=== PATIENT | male | born 1950 | race Caucasian/White ===

== ENCOUNTER → 2017-04-07 | Outpatient (CLI) | payer OTHER, MEDICARE ==
[~2017-04-07] MED LIST: CLEOCIN HCL150 MG PO; CRESTOR10 MG PO; IBUPROFEN 800800 M1 PO; LEVOTHYROXINE0.05 MG PO; LISINOPRIL20 MG PO; MIRALAX17 GM PO; NORVASC10 MG PO; PRILOSEC PO; TRAMADOL 50 MG50 MG PO
[2017-04-07 11:23] LABS: ABSOLUTE EOSINOPHILS 0.1 thou/uL (0.0-0.7); ABSOLUTE MONOCYTES 0.7 thou/uL (0.0-1.2); ABSOLUTE NEUTROPHILS 6.8 thou/uL (1.6-8.1); BASOPHILS 0.6 %; EOSINOPHILS 1.4 %; HEMOGLOBIN 15.3 gm/dL (14.0-18.0); LYMPHOCYTES 11.4 %; MCH 26.7 pg (26.0-34.0); MCHC 33.1 g/dL (28.0-37.0); MCV 80.5 fL (80.0-100.0); MONOCYTES 8.4 %; MPV 7.7 fl. (7.2-11.1); NUCLEATED RBCS 0 /100WBC; PLATELET COUNT* 270 thou/uL (150-400); POLYS 78.2 %; RBC 5.72 mil/uL (4.50-6.00); RDW-CV 15.4 % (10.5-14.5); WBC 8.7 thou/uL (4.0-11.0)
[2017-04-07 11:49] LABS: ALBUMIN 3.3 g/dL (3.4-5.0); CREATININE 1.2 mg/dL (0.6-1.3); TOTAL BILIRUBIN 0.3 mg/dL (<0.1-1.0); TOTAL PROTEIN 7.5 g/dL (6.4-8.2)
[2017-04-07 11:53] LABS: POTASSIUM 2.5 mmol/L (3.5-5.1)
== END ==
LOC: M.LAB 10:53
PROVIDERS: Radiology Radiation Oncology
DX: Z85.048 Personal history of other malignant neoplasm of rectum, rectosigmoid junction, and anus (principal)

== ENCOUNTER → 2017-04-09 | Outpatient (CLI) | payer OTHER ==
[2017-04-09 10:01] LABS: CREATININE 1.2 mg/dL (0.6-1.3)
== END ==
LOC: M.LAB 09:41
PROVIDERS: Radiology Radiation Oncology
DX: E87.6 Hypokalemia (principal)

== ENCOUNTER → 2017-04-09 | Outpatient (CLI) | payer OTHER ==
--- NOTE | 2017-04-19 11:23 | ONC ---
[place] [address] RADIATION ONCOLOGY NOTE Name: ALYMK Devan Room: [facility]#: [id number] Admission: 04/09/17 Attend Phys: Jacob Larkin MD Discharge: Date of : 52 Report #: [id number] THIS REPORT FOR: //name// CC: Dr. Jose Kendall MD DATE OF SERVICE: 04/09/2017 REFERRING PHYSICIANS: Include Dr. Jose Montoya; Kristi Perez MD; Logan Bennett MD; Hernando Kendall MD [facility] phone is [phone]. PRIMARY SITE AND HISTOPATHOLOGY: The patient received chemoradiotherapy preoperatively for a clinical T3 NX M0 rectal cancer. The patient underwent resection of the rectal cancer on 09/04/2013. The patient's radiation therapy was completed on 06/29/2013. The patient underwent a low anterior resection on 09/04/2013. He had a well-differentiated adenocarcinoma of the rectum resected. INTERVAL NOTE: The patient has lost weight. He attributes it to "losing water weight" and that he lost it since he has been taking lisinopril/hydrochlorothiazide. He has incontinence and wears disposable undergarments. He indicated that Dr. Perez had offered a colostomy bag for the patient and the patient declined to have a colostomy bag. He says he has about 3 loose bowel movements a day, and he takes Imodium AD as needed. In the past, he has taken Lomotil, but now he is mainly taking [id number] Imodium AD. MEDICATIONS: Amlodipine, levothyroxine, lisinopril/hydrochlorothiazide, rosuvastatin, omeprazole. SOCIAL HISTORY: The patient continues to smoke cigarettes. He smokes about 1 cigarette a day. He smoked since about 1959. REVIEW OF SYSTEMS: GASTROINTESTINAL: He does have bowel incontinence. He does continue to have weight loss. He does have loose stools. GENITOURINARY: He empties his bladder well. PHYSICAL EXAMINATION: VITAL SIGNS: The patient weighed 188.2 pounds on 04/09/2017. He was 204.6 pounds on 01/06/2017. On 04/09/2017, blood pressure was 130/78, pulse 68. LYMPH NODES: The patient had no palpable cervical, supraclavicular or inguinal lymphadenopathy. HEART: [place] [address] RADIATION ONCOLOGY NOTE Name: MK LU Room: [facility]#: [id number] Admission: 04/09/17 Attend Phys: Jacob Larkin MD Discharge: Date of : 52 Report #: [id number] rhythm without murmur. LUNGS: were clear to auscultation. ABDOMEN: Appears slightly distended. Positive bowel sounds. RECTAL: There were no palpable masses in the rectum.He is guaiac negative using [employer] Hemoccult cards from lot [id number], that in 06/2019, using [employer] Hemoccult developer from lot [id number] that expires in 01/2020. LABORATORY DATA: From 04/07/2017, white blood count was 8.7, hemoglobin 15.3, platelets 270,000. Sodium 141, potassium 2.5, BUN 13, creatinine 1.2 and then he was given supplemental potassium and his potassium went up to 3.0 on 04/09/2017. His CEA level on 04/07/2017 was 3.3. ASSESSMENT AND PLAN: 1. History of rectal cancer- There is no clear evidence of rectal cancer at this time. The patient had a colonoscopy with biopsies on 11/30/2016, which was negative for carcinoma. So, a repeat chest, abdomen and pelvic CT will be ordered in the next 2-4 weeks as well as a complete blood count, complete metabolic panel. The patient will be asked to schedule a follow up appointment to see me afterwards. He indicated that he is also scheduled to see Dr. Kendall for colonoscopy in May and his colorectal surgeon, Dr. Perez, after that. 2. Hypokalemia-It appears to be correcting with supplemental potassium, part of the hypokalemia may be from his use of hydrochlorothiazide. He will be referred to his primary care physician, Dr. Montoya, to manage his hypokalemia. 3. Cigarette smoking-the patient was encouraged to quit smoking. 4. Hyperlipidemia- The patient takes rosuvastatin and that is managed by his referring physicians. 5. Hypothyroidism-the patient takes levothyroxine and that is managed by his referring physicians. 6. Hypertension. The patient takes lisinopril/hydrochlorothiazide and that is managed by his referring physicians. Thank you for allowing me to participate in the care of this patient. <ELECTRONICALLY SIGNED> By: Jacob Larkin MD 04/19/17 1123 1229 [id number] Larkin MD /nt
== END ==
LOC: M.RTH 04-07 10:30
DX: Z08 Encounter for follow-up examination after completed treatment for malignant neoplasm (principal); E87.6 Hypokalemia; E78.5 Hyperlipidemia, unspecified; E03.9 Hypothyroidism, unspecified; I10 Essential (primary) hypertension; F17.200 Nicotine dependence, unspecified, uncomplicated; Z85.048 Personal history of other malignant neoplasm of rectum, rectosigmoid junction, and anus

== ENCOUNTER → 2017-04-21 | Outpatient (CLI) | payer OTHER ==
[2017-04-21 10:30] LABS: ABSOLUTE EOSINOPHILS 0.1 thou/uL (0.0-0.7); ABSOLUTE MONOCYTES 0.5 thou/uL (0.0-1.2); ABSOLUTE NEUTROPHILS 5.3 thou/uL (1.6-8.1); BASOPHILS 0.7 %; EOSINOPHILS 1.6 %; HEMATOCRIT 44.3 % (42.0-52.0); HEMOGLOBIN 14.7 gm/dL (14.0-18.0); LYMPHOCYTES 13.7 %; MCH 26.9 pg (26.0-34.0); MCHC 33.2 g/dL (28.0-37.0); MONOCYTES 7.9 %; MPV 7.3 fl. (7.2-11.1); NUCLEATED RBCS 0 /100WBC; PLATELET COUNT* 285 thou/uL (150-400); POLYS 76.1 %; RBC 5.47 mil/uL (4.50-6.00); RDW-CV 15.3 % (10.5-14.5); WBC 6.9 thou/uL (4.0-11.0)
[2017-04-21 10:53] LABS: ALBUMIN 3.3 g/dL (3.4-5.0); CALCIUM 9.3 mg/dL (8.5-10.1); CREATININE 1.3 mg/dL (0.6-1.3); POTASSIUM 4.1 mmol/L (3.5-5.1); TOTAL BILIRUBIN 0.6 mg/dL (<0.1-1.0); TOTAL PROTEIN 6.7 g/dL (6.4-8.2)
== END ==
LOC: M.LAB 10:08 → M.CT 11:30
PROVIDERS: Radiology Radiation Oncology
DX: C18.9 Malignant neoplasm of colon, unspecified (principal); E87.1 Hypo-osmolality and hyponatremia; J43.8 Other emphysema

== ENCOUNTER 2017-04-23 14:21 | Inpatient (IN) | payer OTHER ==
[~2017-04-23] VITALS: Ht 177.8 cm; Wt 88.0 kg
--- NOTE | ~2017-04-23 | PROC ---
[address] [address] PROCEDURE REPORT Name: MK LU Room: [address] IN .R.#: [id number] Admission: 04/23/17 Attend Phys: Henry Owen MD Discharge: 04/24/17 Date of : 52 Report #: [id number] THIS REPORT FOR: //name// For additional GI procedure report details, please see the Provation report in Perceptive 7 content. By: [id number] Records Staff ALBERTA /ALFRED
--- NOTE | ~2017-04-23 | PROC ---
[address] [address] PROCEDURE REPORT Name: MK LU Room: [address] IN .R.#: [id number] Admission: 04/23/17 Attend Phys: Henry Owen MD Discharge: 04/24/17 Date of : 52 Report #: [id number] THIS REPORT FOR: //name// For additional GI report details, please see the Provation report in Perceptive 7 content. By: 1316Medical Records Staff ALBERTA /ALFRED
[~2017-04-23 14:21] MED LIST changes: -MIRALAX17 GM PO
[2017-04-23 14:31] VITALS: BP 134/80
[2017-04-23 14:53] LABS: URINE BILIRUBIN NEGATIVE (Negative); URINE BLOOD NEGATIVE (Negative); URINE CLARITY CLEAR; URINE COLOR YELLOW; URINE GLUCOSE-RANDOM NEGATIVE (Negative); URINE KETONES TRACE (Negative); URINE LEUKOCYTES-REFLEX NEGATIVE (Negative); URINE NITRITE-REFLEX NEGATIVE (Negative); URINE PROTEIN NEGATIVE (Negative); URINE UROBILINOGEN 0.2 E.U./dl (0.2-1.0)
[2017-04-23 15:02] LABS: ABSOLUTE BASOPHILS 0.1 thou/uL (0.0-0.2); ABSOLUTE EOSINOPHILS 0.1 thou/uL (0.0-0.7); ABSOLUTE LYMPHOCYTES 1.3 thou/uL (0.8-5.3); ABSOLUTE MONOCYTES 0.6 thou/uL (0.0-1.2); ABSOLUTE NEUTROPHILS 5.6 thou/uL (1.6-8.1); BASOPHILS 0.7 %; EOSINOPHILS 1.2 %; HEMATOCRIT 42.4 % (42.0-52.0); HEMOGLOBIN 14.1 gm/dL (14.0-18.0); LYMPHOCYTES 16.6 %; MCH 26.6 pg (26.0-34.0); MCHC 33.2 g/dL (28.0-37.0); MCV 80.2 fL (80.0-100.0); MONOCYTES 7.6 %; MPV 7.7 fl. (7.2-11.1); NUCLEATED RBCS 0 /100WBC; PLATELET COUNT* 272 thou/uL (150-400); POLYS 73.9 %; RBC 5.28 mil/uL (4.50-6.00); RDW-CV 15.4 % (10.5-14.5); WBC 7.5 thou/uL (4.0-11.0)
[2017-04-23 15:10] LABS: ANION GAP 8 mmol/L (7-16); BUN 13 mg/dL (7-18); CALCIUM 9.2 mg/dL (8.5-10.1); CHLORIDE 103 mmol/L (98-107); CO2 31 mmol/L (21-32); CREATININE 1.3 mg/dL (0.6-1.3); GLUCOSE 95 mg/dL (70-99); POTASSIUM 3.5 mmol/L (3.5-5.1); SODIUM 142 mmol/L (136-145)
[2017-04-23 15:17] LABS: ALBUMIN 3.4 g/dL (3.4-5.0); ALKALINE PHOSPHATASE 96 U/L (46-116); LIPASE 54 U/L (73-393); SGOT 14 U/L (15-37); SGPT 15 U/L (30-65); TOTAL BILIRUBIN 0.5 mg/dL (<0.1-1.0); TOTAL PROTEIN 7.2 g/dL (6.4-8.2); TROPONIN-I LEVEL <0.06 ng/mL (<0.06)
[2017-04-23 15:19] LABS: APTT 28.1 Seconds (25.0-31.3); INR 1.1; PROTIME 10.5 Seconds (9.20-11.50)
[2017-04-23 15:24] VITALS: BP 144/81
[2017-04-23 19:23] VITALS: BP 149/76
[2017-04-23 21:50] VITALS: BP 130/77
[2017-04-24 00:19] VITALS: BP 125/81
[2017-04-24 04:20] VITALS: BP 132/74
[2017-04-24 05:28] LABS: ABSOLUTE BASOPHILS 0.1 thou/uL (0.0-0.2); ABSOLUTE EOSINOPHILS 0.1 thou/uL (0.0-0.7); ABSOLUTE LYMPHOCYTES 1.2 thou/uL (0.8-5.3); ABSOLUTE MONOCYTES 0.6 thou/uL (0.0-1.2); ABSOLUTE NEUTROPHILS 6.8 thou/uL (1.6-8.1); BASOPHILS 0.6 %; EOSINOPHILS 1.3 %; HEMATOCRIT 43.1 % (42.0-52.0); HEMOGLOBIN 14.6 gm/dL (14.0-18.0); LYMPHOCYTES 13.5 %; MCH 26.9 pg (26.0-34.0); MCHC 33.7 g/dL (28.0-37.0); MCV 79.9 fL (80.0-100.0); MONOCYTES 6.4 %; NUCLEATED RBCS 0 /100WBC; PLATELET COUNT* 279 thou/uL (150-400); POLYS 78.2 %; RDW-CV 15.1 % (10.5-14.5); WBC 8.7 thou/uL (4.0-11.0)
[2017-04-24 05:48] LABS: CALCIUM 9.1 mg/dL (8.5-10.1); CREATININE 1.1 mg/dL (0.6-1.3); POTASSIUM 3.9 mmol/L (3.5-5.1)
[2017-04-24 08:42] VITALS: BP 138/76
[2017-04-24 09:53] VITALS: BP 138/76
[2017-04-24] MEDS ORDERED: MIRALAX17 GM PO (09:53)
--- NOTE | 2017-04-24 11:45 | EKG ---
[place] [address] ELECTROCARDIOGRAM REPORT Name: MK LU Room: [address] IN [facility].#: [id number] Admission: 04/23/17 Attend Phys: Henry Owen MD Discharge: 04/24/17 Date of : 52 Report #: [id number] THIS REPORT FOR: //name// [facility] ED Test Date: 2017-04-23 Test Time: 14:36:43 Pat Name: MK LU Department: Room: [facility] Gender: Utilization Manager: Cecily TATE : 1950 Requested By: Subha Carpenter Order Number: [id number] MD: Kwesi Lainez Measurements Intervals [place] Rate: 51 P: -1 IA: 143 QRS: -20 QRSD: 124 T: 31 QT: 473 QTc: 436 Interpretive Statements Sinus rhythm Nonspecific intraventricular conduction delay Compared to ECG 11/26/2016 12:58:32 No significant changes Electronically Signed On 04-24-2017 11:45:41 ERGONOMIC SPECIALIST by Kwesi Lainez [email or web address] <ELECTRONICALLY SIGNED> By: Kwesi Lainez MD, FACC 04/24/17 1145 1436 1436 Kwesi Lainez MD, FAC /EPI
--- NOTE | 2017-04-27 12:34 | S ---
[place] [address] SURGICAL PATH RPT PROCEDURE Name: MK PAIZ Room: [address] IN .R.#: [id number] Admission: 04/23/17 Date of : 52 Discharge: 04/24/17 Report #: [id number] Path Case #: [id number] PATHOLOGY REPORT COLLECTION DATE: 04/23/2017 RECEIVED DATE: 04/26/2017 SUBMITTING PHYS: Dr. Hernando Kendall OTHER PHYS: Dr. Henry Montoya SPECIMEN(S) RECEIVED: A.Anastomotic biopsy anal colonic anastomosis * * * * * * * * * * * * FINAL DIAGNOSIS: Anastomotic biopsy, anal colonic anastomosis: - Minimal active colitis with suggestion of chronic colitis, negative for granulomas, viral inclusions, and dysplasia. (see comment) COMMENT: The biopsies reveal benign colonic mucosa including several which appear essentially normal and several others show minimal active colitis evidenced by focal cryptitis in association with the a increase of lymphoplasmacytic infiltrate in the lamina propria. There is no definite basal lymphoplasmacytosis although there is crypt disarray verging on distortion suggestive of chronic colitis. No dysplasia/adenomatous changes are present. (REBEKAH:; 04/27/2017) PATHOLOGIST: Andrew Yeung M.D. REPORT ELECTRONICALLY SIGNED BY: Andrew Yeung M.D. DATE/TIME: 04/27/2017 12:33 * * * * * * * * * * * * GROSS PATHOLOGY: Received in formalin labeled "Mk Paiz, anastomotic biopsy, anal colonic anastomosis," are six segments of arcos soft tissue measuring 0.8 x 0.8 x 0.1 cm in aggregate dimensions and ranging from 0.3 to 0.6 cm in maximum dimension. The specimen is submitted entirely in cassette A1. (CAA; 04/26/2017) CLINICAL HISTORY: None provided INITIAL CPT CODE(S): [place] [address] SURGICAL PATH RPT PROCEDURE Name: MK PAIZ Room: [address]#: [id number] Admission: 04/23/17 Date of : 52 Discharge: 04/24/17 Report #: [id number] Path Case #: [id number]; [id number] Professional services performed by [facility] at [facility], [address] [place] [address] [place] [address]. Technical services performed by [facility] at [address] [place] [address], [address], [place] [address]. [facility] [address] [address] PHONE: [phone] DIRECTOR: Hardeep David M.D. * * * END OF REPORT * * *
--- NOTE | 2017-05-05 16:13 | CON ---
[address] [address] CONSULTATION Name: MK LU Room: [address]#: [id number] Admission: 04/23/17 Attend Phys: Henry Owen MD Discharge: 04/24/17 Date of : 52 Report #: [id number] THIS REPORT FOR: //name// CC: Henry Kendall DATE OF SERVICE: 04/23/2017 REASON FOR CONSULT: Abnormal CT and colonic distention. HISTORY OF PRESENT ILLNESS: This is a 67-year-old male with history of rectal cancer who has had surgery and chemoradiation. Back in January, the patient presented with similar symptoms and we dilated the colorectal anastomotic site as this had strictured. The patient reports that he was able to have bowel movement for a few months, but then he started having difficulty passing stool. Most of his stool is watery and he usually has abdominal distention. The patient was being followed up by Oncology and they ordered a CT and saw that the colon was distended to 10 cm. This prompted them to refer the patient to ER for admission and workup. PAST MEDICAL HISTORY: 1. Significant for history of hypothyroidism. 2. GERD. 3. Hypertension. 4. Rectal cancer status post resection and colorectal anastomosis. 5. 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 ALLERGIES: SIGNIFICANT TO SULFA. MEDICATIONS: At home include lisinopril, levothyroxine, omeprazole, amlodipine and rosuvastatin. SOCIAL HISTORY: The patient lives at home. Denies alcohol use. He smokes daily. The patient also has had a colorectal surgery back in 09/2013 with subsequent chemoradiation therapy. FAMILY HISTORY: Noncontributory. PHYSICAL EXAMINATION: VITAL SIGNS: Reveals normal vitals. LUNGS: Clear. CARDIOVASCULAR: Regular. ABDOMEN: Large and distended. Bowel sounds are present. There is mild [facility] [address] [place] [address] CONSULTATION Name: MK LU Devan Room: [address]#: [id number] Admission: 04/23/17 Attend Phys: Henry Owen MD Discharge: 04/24/17 Date of : 52 Report #: [id number] generalized tenderness to palpation. NEUROLOGIC: The patient is alert, oriented x 3. LABORATORY DATA: Reveal sodium of 142, potassium 3.5, BUN is 13, creatinine 1.3. WBC is 7.5 with hemoglobin of 14.1 and platelet of 272. Liver function tests all within normal limit. Lipase is 54. The patient with history rectal cancer and colorectal anastomosis back in 2013 with subsequent stricture at the site of anastomosis, which was dilated back in 01/2017. He once again has difficulty passing stool and CT suggestive of dilation of the colon to 10 cm. We will go ahead and perform a flex sigmoidoscopy with possible dilation of the anastomotic site and biopsy of the same site. Note that the previous biopsies in 01/2017 showed inflammatory changes, but no sign of dysplasia or cancer. We will make further recommendation once the flex sigmoidoscopy is complete. <ELECTRONICALLY SIGNED> By: Hernando Kendall MD 05/05/17 1613 1750 0157Hernando Kendall MD /nt
== END 2017-04-24 10:11 | disposition home or self-care (01) | DRG 394 ==
LOC: M.ERS 14:21 → M.TBA-ER 15:04 → M.ORTHSURG 17:51
PROVIDERS: Physician Assistant; ADMIT Internal Medicine
PROC: 0D7E8ZZ Dilation of Large Intestine, Via Natural or Artificial Opening Endoscopic (ICD-10-PCS; principal; 2017-04-23)
DX: K52.0 Gastroenteritis and colitis due to radiation (principal); E44.0 Moderate protein-calorie malnutrition; K56.609 Unspecified intestinal obstruction, unspecified as to partial versus complete obstruction; K63.4 Enteroptosis; I10 Essential (primary) hypertension; E03.9 Hypothyroidism, unspecified; K21.9 Gastro-esophageal reflux disease without esophagitis; F17.210 Nicotine dependence, cigarettes, uncomplicated; Z68.27 Body mass index [BMI] 27.0-27.9, adult; Z85.048 Personal history of other malignant neoplasm of rectum, rectosigmoid junction, and anus; Z92.21 Personal history of antineoplastic chemotherapy; Z92.3 Personal history of irradiation; Z79.899 Other long term (current) drug therapy; Z88.2 Allergy status to sulfonamides

== ENCOUNTER → 2017-06-23 | Outpatient (CLI) | payer OTHER ==
[~2017-06-23] MED LIST changes: +MIRALAX17 GM PO
--- NOTE | 2017-07-04 23:22 | ONC ---
[place] [address] RADIATION ONCOLOGY NOTE Name: MK LU Room: [facility]#: [id number] Admission: 06/23/17 Attend Phys: Jacob Larkin MD Discharge: Date of : 52 Report #: [id number] THIS REPORT FOR: //name// CC: Dr. Jose Kendall MD DATE OF SERVICE: 06/23/2017 REFERRING PHYSICIANS: Dr. Jose Montoya; Kristi Perez MD; Logan Bennett MD; Hernando Kendall MD. [facility] phone is [phone]. PRIMARY SITE AND HISTOPATHOLOGY: The patient received chemoradiotherapy preoperatively for a clinical T3 NX M0 rectal cancer. The patient underwent resection of the rectal cancer on 09/04/2013. The patient's radiation therapy was completed on 06/29/2013. The patient underwent a low anterior resection on 09/04/2013. He had a well-differentiated adenocarcinoma of the rectum resected. INTERVAL NOTE: The patient had seen his medical oncologist, Dr. Bennett. He was found to have low potassium, so he was placed on potassium supplements and it was not felt that he had a definite recurrence. The patient indicated that he was offered a colostomy bag since he does have a stricture in the rectal area, which causes abdominal distention, but right now, he does not want a colostomy bag. He is incontinent and wears disposable undergarments. MEDICATIONS: Include amlodipine, levothyroxine, lisinopril/hydrochlorothiazide, rosuvastatin, omeprazole. SOCIAL HISTORY: The patient continues to smoke cigarettes, and smokes about 1 cigarette a day. He smoked since about 1959. REVIEW OF SYSTEMS: GASTROINTESTINAL: He has bowel incontinence. He continues to have some mild weight loss. GENITOURINARY: He empties his bladder well. PHYSICAL EXAMINATION: VITAL SIGNS: The patient weighed 185 pounds on 06/23/2017 and 193.4 pounds on 04/23/2017. On 06/23/2017, blood pressure was 118/69, pulse 55, respirations 18, oxygen saturation 94% on room air. LYMPH NODES: The patient had no palpable cervical, supr[place] [address] RADIATION ONCOLOGY NOTE Name: BELKISGRACEMK CHOWDHURY Room: [facility]#: [id number] Admission: 06/23/17 Attend Phys: Jacob Larkin MD Discharge: Date of : 52 Report #: [id number] lymphadenopathy. HEART: Had a regular rate and rhythm without murmur. LUNGS: were clear to auscultation. ABDOMEN: Continues to be distended. He has positive bowel sounds. RECTAL: Deferred since he declined it. Since he is seeing Dr. Perez, his colorectal surgeon on 07/05/2017, usually, he has one at that time. LABORATORY DATA: From 06/18/2017, BUN 16, creatinine 1.06, potassium 2.5, AST 27, ALT 28. White blood cell count 7.3, hemoglobin 14.6. CEA level 1.8. RADIOLOGIC DATA: He had an abdominal pelvic CT on 04/21/2017, where he had distention of the abdomen prior to having Dr. Kendall dilate the rectal sphincter. ASSESSMENT AND PLAN: 1. History of rectal cancer. There was some uptake on the PET scan in that area, but it is not clear if that was due to inflammation since there is no obvious recurrent cancer seen so far. The patient will see his colorectal surgeon, Dr. Perez on 07/05/2017. He was asked to follow up with me in about a month and he is going to follow up with Dr. Bennett in about 2 months. He had lab work ordered in about a month. 2. Hypokalemia- He is taking potassium supplements. He was given a requisition for a potassium level at this point and he was going to follow up with me in about a month. 3. Hypothyroidism- The patient takes levothyroxine that is managed by his referring physicians. 4. Hyperlipidemia- The patient takes rosuvastatin that is managed by his referring physicians. 5. Hypertension- The patient takes lisinopril and that is managed by his referring physicians. 6. Rectal stricture. Will be referred to Dr. Kendall also to see if he has any management ideas if the patient does not want to have a colostomy. Thank you for allowing me to participate in the care of this patient. <ELECTRONICALLY SIGNED> By: Jacob Larkin MD 07/04/17 2322 1243 1406Jacob Larkin MD /huyen
== END ==
LOC: M.RTH 09:09
DX: E87.6 Hypokalemia (principal)

== ENCOUNTER → 2017-06-29 | Outpatient (CLI) | payer OTHER | LOC: M.LAB 12:19 | DX: E87.6 Hypokalemia (principal) ==

== ENCOUNTER → 2017-07-29 | Outpatient (CLI) | payer OTHER ==
[2017-07-29 11:56] LABS: ABSOLUTE BASOPHILS 0.1 thou/uL (0.0-0.2); ABSOLUTE EOSINOPHILS 0.1 thou/uL (0.0-0.7); ABSOLUTE LYMPHOCYTES 1.1 thou/uL (0.8-5.3); ABSOLUTE MONOCYTES 0.6 thou/uL (0.0-1.2); ABSOLUTE NEUTROPHILS 4.9 thou/uL (1.6-8.1); BASOPHILS 0.9 %; EOSINOPHILS 1.7 %; HEMATOCRIT 45.1 % (42.0-52.0); HEMOGLOBIN 15.1 gm/dL (14.0-18.0); LYMPHOCYTES 16.8 %; MCH 27.2 pg (26.0-34.0); MCHC 33.4 g/dL (28.0-37.0); MCV 81.4 fL (80.0-100.0); MONOCYTES 9.1 %; MPV 7.8 fl. (7.2-11.1); NUCLEATED RBCS 0 /100WBC; PLATELET COUNT* 242 thou/uL (150-400); POLYS 71.5 %; RBC 5.54 mil/uL (4.50-6.00); RDW-CV 15.1 % (10.5-14.5); WBC 6.9 thou/uL (4.0-11.0)
[2017-07-29 12:11] LABS: ALBUMIN 3.3 g/dL (3.4-5.0); CALCIUM 8.8 mg/dL (8.5-10.1); CREATININE 1.2 mg/dL (0.6-1.3); POTASSIUM 3.5 mmol/L (3.5-5.1); TOTAL BILIRUBIN 0.4 mg/dL (<0.1-1.0); TOTAL PROTEIN 6.8 g/dL (6.4-8.2)
== END ==
LOC: M.LAB 11:41
PROVIDERS: Radiology Radiation Oncology
DX: E87.6 Hypokalemia (principal)

== ENCOUNTER → 2017-07-30 | Outpatient (CLI) | payer OTHER ==
--- NOTE | 2017-08-09 00:09 | ONC ---
[place] [address] RADIATION ONCOLOGY NOTE Name: MK LU Room: [facility]#: [id number] Admission: 07/30/17 Attend Phys: Jacob Larkin MD Discharge: Date of : 52 Report #: [id number] THIS REPORT FOR: //name// CC: Dr. Jose Bennett MD DATE OF SERVICE: 07/30/2017 REFERRING PHYSICIANS: Henry Owen MD; Jose Montoya DO; Hernando Kendall MD; Kristi Perez MD and Logan Bennett MD [facility] phone is [phone]. PRIMARY SITE AND HISTOPATHOLOGY: The patient received chemoradiotherapy preoperatively for a clinical T3 NX M0 rectal cancer. The patient underwent resection of the rectal cancer on 09/04/2013. The patient's radiation therapy was completed on 06/09/2013. The patient underwent a low anterior resection on 09/04/2013. 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 INTERVAL NOTE: The patient feels better. He saw his primary care physician with regards to his low potassium and his lisinopril and hydrochlorothiazide was discontinued. He is now just on lisinopril and he continues to take potassium supplements. He is about to run out. He says he is more active and feels better. He is still incontinent and wears disposable undergarments and he had updated lab results that he came to review. MEDICATIONS: Include 40 mg of omeprazole, delayed release one capsule orally once a day. He is now on lisinopril once a day, rosuvastatin calcium, amlodipine, 50 mcg levothyroxine. He takes MiraLax usually about 3 times a day and he is on 20 mEq of potassium chloride twice a day. SOCIAL HISTORY: The patient continues to smoke cigarettes. He smoked about one pack of cigarettes a day and he has done so since about 1959. REVIEW OF SYSTEMS: GASTROINTESTINAL: He still continues to have bowel incontinence. His weight has stabilized. He has about five bowel movements a day. GENITOURINARY: He empties his bladder well. PHYSICAL EXAMINATION: VITAL SIGNS: The patient weighed 185.2 pounds on 07/30/2017, was 185 pounds on 06/23/2017 and on 07/30/2017 blood pressure is 150/77, pulse 54, [place] [address] RADIATION ONCOLOGY NOTE Name: MK LU Room: [facility]#: [id number] Admission: 07/30/17 Attend Phys: Jacob Larkin MD Discharge: Date of : 52 Report #: [id number], oxygen saturation 95%. LYMPH NODES: no palpable cervical, supraclavicular or inguinal lymphadenopathy. HEART: Had a regular rate and rhythm without murmur. LUNGS: were clear to auscultation. ABDOMEN: Slightly distended with normal bowel sounds. RECTAL: Deferred. He had one in April. He is going to be seeing his colorectal surgeon again in October, so he opted to not have a rectal examination at this time. LABORATORY DATA: From 07/29/2017, sodium 145, potassium 3.5 which is within normal limits, BUN 13, creatinine 1.2, alkaline phosphatase 100, ALT 29. White blood cell count 6.9, hemoglobin 15.1 and platelets 142,000. ASSESSMENT AND PLAN: 1. History of rectal cancer- There is no clear evidence of rectal cancer at this time. He did have some hypermetabolic activity on the PET scan, but it is not clear if that was inflammation since there has not been any clear evidence of recurrent disease. He says he is seeing his colorectal surgeon, Dr. Perez around 10/2017 and that he will be seeing his medical oncologist, Dr. Bennett in a couple of months. He was asked to schedule a followup appointment to see me in about 6 weeks too. 2. Hypokalemia- The patient's lisinopril/hydrochlorothiazide was discontinued. He is on lisinopril alone and his potassium has normalized, so his potassium supplement schedule was 20 mEq twice a day for about 7 days, then take it once a day and he was asked to then have labwork done in about 1 month and follow up with me afterwards. Lab work includes a potassium level. He has an appointment with his primary care physician in 10/2017. 3. Hypothyroidism- The patient takes levothyroxine and that is managed by his referring physicians. 4. Hypertension- The patient takes lisinopril and that is managed by his referring physicians. Thank you for allowing me to participate in the care of this patient. <ELECTRONICALLY SIGNED> By: Jacob Larkin MD 08/09/17 0009 1500 0147Jacob Larkin MD /nt
== END ==
LOC: M.RTH 01:37
DX: E03.9 Hypothyroidism, unspecified (principal); E78.5 Hyperlipidemia, unspecified; E87.6 Hypokalemia; Z85.048 Personal history of other malignant neoplasm of rectum, rectosigmoid junction, and anus

== ENCOUNTER → 2017-08-26 | Outpatient (CLI) | payer OTHER ==
[2017-08-26 14:10] LABS: ABSOLUTE EOSINOPHILS 0.1 thou/uL (0.0-0.7); ABSOLUTE LYMPHOCYTES 0.9 thou/uL (0.8-5.3); ABSOLUTE MONOCYTES 0.6 thou/uL (0.0-1.2); ABSOLUTE NEUTROPHILS 5.1 thou/uL (1.6-8.1); BASOPHILS 0.6 %; EOSINOPHILS 1.3 %; HEMATOCRIT 45.3 % (42.0-52.0); HEMOGLOBIN 15.2 gm/dL (14.0-18.0); LYMPHOCYTES 13.2 %; MCH 27.5 pg (26.0-34.0); MCHC 33.5 g/dL (28.0-37.0); MONOCYTES 8.5 %; MPV 8.4 fl. (7.2-11.1); NUCLEATED RBCS 0 /100WBC; PLATELET COUNT* 226 thou/uL (150-400); POLYS 76.4 %; RBC 5.52 mil/uL (4.50-6.00); RDW-CV 15.5 % (10.5-14.5); WBC 6.7 thou/uL (4.0-11.0)
[2017-08-26 14:22] LABS: ALBUMIN 3.3 g/dL (3.4-5.0); CALCIUM 9.1 mg/dL (8.5-10.1); CREATININE 1.1 mg/dL (0.6-1.3); TOTAL BILIRUBIN 0.4 mg/dL (<0.1-1.0); TOTAL PROTEIN 6.8 g/dL (6.4-8.2)
[2017-08-26 14:29] LABS: POTASSIUM 2.9 mmol/L (3.5-5.1)
== END ==
LOC: M.LAB 13:50
PROVIDERS: Radiology Radiation Oncology
DX: Z85.048 Personal history of other malignant neoplasm of rectum, rectosigmoid junction, and anus (principal)

== ENCOUNTER → 2017-08-27 | Outpatient (CLI) | payer OTHER ==
--- NOTE | 2017-09-10 00:49 | ONC ---
[address] [address] RADIATION ONCOLOGY NOTE Name: MK LU Deavn Room: [facility]#: [id number] Admission: 08/27/17 Attend Phys: Jacob Larkin MD Discharge: Date of : 52 Report #: [id number] THIS REPORT FOR: //name// CC: Dr. Jose Bennett MD DATE OF SERVICE: 08/27/2017 REFERRING PHYSICIANS: Dr. Jose Montoya; Hernando Kendall MD; Elliot Perez MD; Logan Bennett MD. [facility] phone is [phone]. PRIMARY SITE AND HISTOPATHOLOGY: The patient received chemoradiotherapy preoperatively for a clinical T3 NX M0 rectal cancer. The patient underwent resection of the rectal cancer on 09/04/2013. The patient's radiation therapy was completed on 06/09/2013. The patient underwent a low anterior resection on 09/04/2013. 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 INTERVAL NOTE: The patient indicated that, because of his job, he does not always eat regularly. He does not always remember to take his potassium supplements and he wears disposable undergarments since he does have incontinence. He saw his fur blender, Dr. Kendall on 08/05/2017 and he was willing to reevaluate the patient with a sigmoidoscopy and possibly do further dilation if that would be helpful. He says he is scheduled to see Dr. Perez around 10/22. MEDICATIONS: Amlodipine, levothyroxine, rosuvastatin, lisinopril, K-Dur 20 mEq. SOCIAL HISTORY: The patient continues to smoke cigarettes. He smokes about 1 pack of cigarettes a day since about 1959. GASTROINTESTINAL: Continues to have bowel incontinence. He continues to lose weight. He has about 3 bowel movements a day. He empties his bladder well. PHYSICAL EXAMINATION: VITAL SIGNS: Weight 173.8 pounds on 08/27/2017. He weighed 185.2 pounds on 07/30/2017. On 08/27/2017, blood pressure 119/66, oxygen saturation 94%, pulse 81, respirations 20. LYMPH NODES: He had no palpable cervical, supraclavicular or inguinal lymphadenopathy. HEART: Had a regular rate [place] [address] RADIATION ONCOLOGY NOTE Name: MK LU Room: [facility]#: [id number] Admission: 08/27/17 Attend Phys: Jacob Larkin MD Discharge: Date of : 52 Report #: [id number] LUNGS: were clear to auscultation. ABDOMEN: Slightly distended with no organomegaly. RECTAL: The patient deferred that since he is going to see his colorectal surgeon in October. LABORATORY DATA: From 08/26/2017, sodium 141, potassium 2.9, BUN 13, creatinine 1.1, ALT 38. White blood count 6.7, hemoglobin 15.2, AST slightly elevated at 41. ASSESSMENT AND PLAN: 1. History of rectal cancer- There is no clear evidence of rectal cancer. He did have hypermetabolic activity on the PET scan, but it is not clear if that was inflammation or recurrent disease. He is seeing his colorectal surgeon in 10/2017. He has lab work ordered next month and he was asked to follow up with me afterwards. 2. Hypokalemia-The patient has not been compliant with taking his potassium and has not followed up with his primary care physician, so he was given a prescription for potassium supplement and lab work including potassium level will be checked in about a month. He will be asked to follow up with me afterwards. He was encouraged to try to follow up with his primary care physician with regards to this matter. 3. Hypothyroidism- The patient takes levothyroxine and that is managed by his referring physicians. 4. Hypertension- The patient takes lisinopril and that is managed by his referring physicians. Thank you for allowing me to participate in the care of this patient. <ELECTRONICALLY SIGNED> By: Jacob Larkin MD 09/10/17 0049 1310 1414Dcheryl Larkin MD /nt
== END ==
LOC: M.RTH 05:41
DX: I10 Essential (primary) hypertension (principal); E03.9 Hypothyroidism, unspecified; F17.210 Nicotine dependence, cigarettes, uncomplicated; Z85.048 Personal history of other malignant neoplasm of rectum, rectosigmoid junction, and anus

== ENCOUNTER → 2017-09-30 | Outpatient (CLI) | payer OTHER ==
[2017-09-30 13:37] LABS: ABSOLUTE BASOPHILS 0.1 thou/uL (0.0-0.2); ABSOLUTE EOSINOPHILS 0.1 thou/uL (0.0-0.7); ABSOLUTE LYMPHOCYTES 0.9 thou/uL (0.8-5.3); ABSOLUTE MONOCYTES 0.7 thou/uL (0.0-1.2); ABSOLUTE NEUTROPHILS 5.3 thou/uL (1.6-8.1); BASOPHILS 0.8 %; EOSINOPHILS 1.3 %; HEMATOCRIT 43.6 % (42.0-52.0); HEMOGLOBIN 14.6 gm/dL (14.0-18.0); LYMPHOCYTES 12.3 %; MCH 27.6 pg (26.0-34.0); MCHC 33.5 g/dL (28.0-37.0); MCV 82.3 fL (80.0-100.0); MONOCYTES 9.6 %; MPV 7.9 fl. (7.2-11.1); NUCLEATED RBCS 0 /100WBC; PLATELET COUNT* 275 thou/uL (150-400); RDW-CV 15.4 % (10.5-14.5)
[2017-09-30 13:45] LABS: ALBUMIN 2.9 g/dL (3.4-5.0); CALCIUM 8.7 mg/dL (8.5-10.1); CREATININE 0.9 mg/dL (0.6-1.3); POTASSIUM 3.7 mmol/L (3.5-5.1); TOTAL BILIRUBIN 0.4 mg/dL (<0.1-1.0); TOTAL PROTEIN 6.5 g/dL (6.4-8.2)
== END ==
LOC: M.LAB 13:09
PROVIDERS: Radiology Radiation Oncology
DX: E87.6 Hypokalemia (principal); Z85.048 Personal history of other malignant neoplasm of rectum, rectosigmoid junction, and anus

== ENCOUNTER → 2018-01-10 | Outpatient (CLI) | payer OTHER, MEDICARE ==
[2018-01-10 12:22] LABS: ABSOLUTE BASOPHILS 0.1 thou/uL (0.0-0.2); ABSOLUTE EOSINOPHILS 0.1 thou/uL (0.0-0.7); ABSOLUTE LYMPHOCYTES 0.9 thou/uL (0.8-5.3); ABSOLUTE MONOCYTES 0.6 thou/uL (0.0-1.2); ABSOLUTE NEUTROPHILS 7.1 thou/uL (1.6-8.1); BASOPHILS 0.7 %; EOSINOPHILS 1.4 %; HEMATOCRIT 43.6 % (42.0-52.0); HEMOGLOBIN 14.6 gm/dL (14.0-18.0); LYMPHOCYTES 10.5 %; MCH 28.2 pg (26.0-34.0); MCHC 33.6 g/dL (28.0-37.0); MCV 83.9 fL (80.0-100.0); MONOCYTES 7.3 %; MPV 7.8 fl. (7.2-11.1); NUCLEATED RBCS 0 /100WBC; PLATELET COUNT* 230 thou/uL (150-400); POLYS 80.1 %; RDW-CV 14.7 % (10.5-14.5); WBC 8.8 thou/uL (4.0-11.0)
[2018-01-10 12:41] LABS: ALBUMIN 3.3 g/dL (3.4-5.0); CREATININE 1.2 mg/dL (0.6-1.3); POTASSIUM 3.5 mmol/L (3.5-5.1); TOTAL BILIRUBIN 0.3 mg/dL (<0.1-1.0); TOTAL PROTEIN 6.8 g/dL (6.4-8.2)
== END ==
LOC: M.LAB 12:03
PROVIDERS: Radiology Radiation Oncology
DX: Z08 Encounter for follow-up examination after completed treatment for malignant neoplasm (principal); Z85.048 Personal history of other malignant neoplasm of rectum, rectosigmoid junction, and anus

== ENCOUNTER → 2018-01-12 | Outpatient (CLI) | payer OTHER, MEDICARE ==
--- NOTE | 2018-01-23 22:37 | ONC ---
[place] [address] RADIATION ONCOLOGY NOTE Name: MK LU Devan Room: [facility]#: [id number] Admission: 01/12/18 Attend Phys: Jacob Larkin MD Discharge: Date of : 52 Report #: [id number] THIS REPORT FOR: //name// CC: Dr. Jose Bennett MD DATE OF SERVICE: 01/12/2018 REFERRING PHYSICIANS: Dr. Jose Montoya; Dr. Hernando Kendall, Dr. Kristi Perez and Dr. Logan Bennett. [facility] phone is [phone]. PRIMARY SITE AND HISTOPATHOLOGY: The patient received chemoradiotherapy preoperatively for a clinical T3 NX M0 rectal cancer. The patient underwent resection of the rectal cancer on 09/04/2013. The patient's radiation therapy was completed on 06/09/2013. 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 INTERVAL NOTE: The patient says he has cut down the amount of cigarettes that he smokes and he felt that his abdomen is less distended. He felt like he was eating well. He says that he is having a test for his gallbladder and that there is a chance that he may be scheduled for cholecystectomy. MEDICATIONS: Include amlodipine, levothyroxine, rosuvastatin, lisinopril and K-Dur 20 mEq. SOCIAL HISTORY: The patient smoked cigarettes, he smoked about 1 pack of cigarettes since about 1959, he says he is smoking a bit less than that. REVIEW OF SYSTEMS: GASTROINTESTINAL: He has bowel incontinence, which is chronic. He usually uses about 2 or 3 disposable undergarments over a days' time, but he feels like he has a little bit better control in terms of the amount of bowel movements that he has per day, he says he has about 3 bowel movements a day. PHYSICAL EXAMINATION: VITAL SIGNS: The patient weighed 174.6 pounds on 01/12/2018, 173.8 pounds on 08/27/2017. On 01/12/2018, blood pressure was 119/84, pulse 55, respirations 20. LYMPH NODES: He had no palpable cervical or supraclavicular [place] [address] RADIATION ONCOLOGY NOTE Name: MK LU Room: [facility]#: [id number] Admission: 01/12/18 Attend Phys: Jacob Larkin MD Discharge: Date of : 52 Report #: [id number] HEART: Had a regular rate and rhythm without murmur. LUNGS: were clear to auscultation. ABDOMEN: Definitely less distended and softer than his previous exam. It is not tender. There is no organomegaly. RECTAL: The patient says that he is going to be seeing his electrical tryout person at the end of this year and also seeing Dr. Perez in 05/2018, so he preferred deferring a digital rectal exam since he will be having those examinations. LABORATORY DATA: From 01/10/2018, CEA was within normal limits at 4.1, for smokers the normal range is less than 5.6 and then on 01/10/2018 sodium was 140, potassium 3.5, BUN 12, creatinine 1.2, AST 19, ALT 22. White blood count 8.8, hemoglobin 14.6, platelets 230,000. CEA was 4.1. RADIOLOGIC DATA: He had an abdomen and pelvic CT in 04/21/2017 and at that time he had distention of the colon and then seen Dr. Kendall for that issue. He had a chest CT in 04/21/2017, which showed no evidence of metastatic disease. ASSESSMENT AND PLAN: 1. History of rectal cancer- there is no evidence of rectal cancer at this time. He is scheduled to see his electrical tryout person, Dr. Kendall around the end of [address] Perez around 05/2018 who is his colorectal surgeon. The patient had a complete blood count, CEA level, complete metabolic panel as well as a chest, abdomen, pelvic CT ordered in 04/2018. He was asked to schedule a followup appointment to see me afterwards. 2. History of hypokalemia -that appears to have resolved. 3. Hypothyroidism- The patient takes levothyroxine and that is managed by his referring physicians. 4. Hyperlipidemia- The patient takes rosuvastatin and that is managed by his referring physicians. 5. Hypertension- The patient takes lisinopril and that is managed by his referring physicians. Thank you for allowing me to participate in the care of this patient. <ELECTRONICALLY SIGNED> By: Jacob Larkin MD 01/23/18 [id number] Larkin MD /nt
== END ==
LOC: M.RTH 01:32
DX: E03.9 Hypothyroidism, unspecified (principal); E78.5 Hyperlipidemia, unspecified; I10 Essential (primary) hypertension; E87.5 Hyperkalemia; Z85.048 Personal history of other malignant neoplasm of rectum, rectosigmoid junction, and anus

== ENCOUNTER → 2018-04-25 | Outpatient (CLI) | payer OTHER, MEDICARE ==
[2018-04-25 10:09] LABS: ABSOLUTE BASOPHILS 0.1 thou/uL (0.0-0.2); ABSOLUTE EOSINOPHILS 0.1 thou/uL (0.0-0.7); ABSOLUTE LYMPHOCYTES 0.9 thou/uL (0.8-5.3); ABSOLUTE MONOCYTES 0.5 thou/uL (0.0-1.2); ABSOLUTE NEUTROPHILS 5.8 thou/uL (1.6-8.1); EOSINOPHILS 1.8 %; HEMATOCRIT 44.1 % (42.0-52.0); HEMOGLOBIN 14.8 gm/dL (14.0-18.0); LYMPHOCYTES 12.5 %; MCH 27.8 pg (26.0-34.0); MCHC 33.5 g/dL (28.0-37.0); MCV 83.1 fL (80.0-100.0); MONOCYTES 7.1 %; MPV 8.1 fl. (7.2-11.1); NUCLEATED RBCS 0 /100WBC; PLATELET COUNT* 208 thou/uL (150-400); POLYS 77.6 %; RBC 5.31 mil/uL (4.50-6.00); RDW-CV 14.1 % (10.5-14.5); WBC 7.5 thou/uL (4.0-11.0)
[2018-04-25 10:12] LABS: CALCIUM 8.8 mg/dL (8.5-10.1)
[2018-04-25 10:17] LABS: ALBUMIN 3.1 g/dL (3.4-5.0); TOTAL BILIRUBIN 0.4 mg/dL (<0.1-1.0); TOTAL PROTEIN 6.3 g/dL (6.4-8.2)
[2018-04-25 10:30] LABS: POTASSIUM 2.7 mmol/L (3.5-5.1)
== END ==
LOC: M.LAB 04-12 09:30 → M.CT 04-12 11:00 → M.LAB 09:30
PROVIDERS: Radiology Radiation Oncology
DX: J43.9 Emphysema, unspecified (principal); I25.84 Coronary atherosclerosis due to calcified coronary lesion; K59.39 Other megacolon; Z85.048 Personal history of other malignant neoplasm of rectum, rectosigmoid junction, and anus

== ENCOUNTER → 2018-06-03 | Outpatient (CLI) | payer OTHER, MEDICARE ==
--- NOTE | ~2018-06-03 | ONC ---
[address] [address] RADIATION ONCOLOGY NOTE Name: MK LU Room: [facility].#: [id number] Admission: 06/03/18 Attend Phys: Jacob Larkin MD Discharge: Date of : 52 Report #: [id number] THIS REPORT FOR: //name// CC: Kristi Bennett MD DATE OF SERVICE: 06/03/2018 RADIATION ONCOLOGY FOLLOWUP NOTE [facility] phone is [phone]. REFERRING PHYSICIANS: 1. Dr. Jose Montoya. 2. Dr. Kristi Perez. 3. Dr. Hernando Kendall. 4. Dr. Logan Bennett. PRIMARY SITE AND HISTOPATHOLOGY: The patient received chemoradiotherapy preoperatively for clinical T3 NX M0 rectal cancer. The patient underwent resection of the rectal cancer on 09/04/2013. The patient's radiation therapy was completed on 06/09/2013. The patient underwent a low anterior resection on 09/04/2013. 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 INTERVAL NOTE: The patient indicated they spoke with his colorectal surgeon, Dr. Perez. He indicated he had a sigmoidoscopy and there was no evidence of cancer found. He indicated that Dr. Perez was offering him possibly an ileostomy. The patient at this point is possibly more interested in pursuing that option since he tends to have frequent bowel movements, a distended abdomen and also sometimes runs low potassiums when he has frequent bowel movements. So, he may be interested diverting stoma. Otherwise, he feels like his appetite is good. MEDICATIONS: Include amlodipine, levothyroxine, rosuvastatin, lisinopril and potassium supplement. SOCIAL HISTORY: The patient smokes cigarettes. He smoked about 1 pack per day since about 1959. REVIEW OF SYSTEMS: Gastrointestinal, he continues to have a distended abdomen. Usually, he uses at least 2-3 disposable undergarments [place] [address] RADIATION ONCOLOGY NOTE Name: MK LU Room: [facility]#: [id number] Admission: 06/03/18 Attend Phys: Jacob Larkin MD Discharge: Date of : 52 Report #: [id number] PHYSICAL EXAMINATION: VITAL SIGNS: The patient weighs 177 pounds. He was 174.6 pounds on 01/12/2018. On 06/03/2018, blood pressure was 178/68, pulse 58, respirations 20 and oxygen saturation 97%. LYMPH NODES: He had no palpable cervical, or supraclavicular or inguinal lymphadenopathy. HEART: Had a regular rate and rhythm, without murmur. LUNGS: Clear to auscultation. ABDOMEN: Still distended at this point. RECTAL EXAMINATION: Deferred since he said he had the flexible sigmoidoscopy with his colorectal surgeon, Dr. Perez, recently. LABORATORY DATA: From 04/25/2018, CEA was 4.0, which was within normal limits; less than 5.6 is the normal limits for smokers and on 04/25/2018, sodium was 143, BUN 9, creatinine 1.0. Potassium was 2.7 and he ended following up with his primary care physician, Dr. Montoya, to manage his hypokalemia. His white blood count was 7.5, hemoglobin 14.8 and platelet were 208,000. ASSESSMENT AND PLAN: 1. History of rectal cancer. There is no clear evidence of recurrent rectal cancer at this time. The patient indicates he is going to follow up with his colorectal surgeon, Dr. Perez, in about 4 weeks to help make a final decision about diverting stoma since he tends to have abdominal distention, probably due to a narrow pelvis and so he will make that decision at that time. Otherwise, a complete blood count, complete metabolic panel and CEA level were ordered around 08/2018. He was asked to follow up with me afterwards. 2. History of hypokalemia. The patient is now following up with his primary care physician to manage this issue. 3. Hypothyroidism. The patient takes levothyroxine and that is managed by his referring physicians. 4. Hyperlipidemia. The patient takes rosuvastatin that is managed by his referring physicians. 5. Hypertension. This might be exacerbated by his distended abdomen. The patient takes lisinopril that is managed by his referring physicians as well. Thank you for allowing me to participate in the care of this patient. By: [id number] Larkin MD /huyen
== END ==
LOC: M.RTH 06-01 11:30
DX: Z08 Encounter for follow-up examination after completed treatment for malignant neoplasm (principal); E03.9 Hypothyroidism, unspecified; E78.5 Hyperlipidemia, unspecified; I10 Essential (primary) hypertension; Z85.048 Personal history of other malignant neoplasm of rectum, rectosigmoid junction, and anus; Z86.2 Personal history of diseases of the blood and blood-forming organs and certain disorders involving the immune mechanism

== ENCOUNTER → 2018-09-07 | Outpatient (CLI) | payer OTHER, MEDICARE ==
[2018-09-07 10:15] LABS: ABSOLUTE EOSINOPHILS 0.3 thou/uL (0.0-0.7); ABSOLUTE LYMPHOCYTES 0.9 thou/uL (0.8-5.3); ABSOLUTE MONOCYTES 0.5 thou/uL (0.0-1.2); ABSOLUTE NEUTROPHILS 4.4 thou/uL (1.6-8.1); BASOPHILS 0.5 %; EOSINOPHILS 4.5 %; HEMATOCRIT 40.5 % (42.0-52.0); HEMOGLOBIN 13.5 gm/dL (14.0-18.0); LYMPHOCYTES 14.4 %; MCHC 33.4 g/dL (28.0-37.0); MONOCYTES 8.7 %; NUCLEATED RBCS 0 /100WBC; PLATELET COUNT* 253 thou/uL (150-400); POLYS 71.9 %; RBC 4.82 mil/uL (4.50-6.00); RDW-CV 16.4 % (10.5-14.5); WBC 6.2 thou/uL (4.0-11.0)
[2018-09-07 10:41] LABS: CALCIUM 9.2 mg/dL (8.5-10.1); CREATININE 0.9 mg/dL (0.6-1.3); POTASSIUM 4.5 mmol/L (3.5-5.1); TOTAL BILIRUBIN 0.3 mg/dL (<0.1-1.0); TOTAL PROTEIN 6.9 g/dL (6.4-8.2)
== END ==
LOC: M.LAB 09:51
PROVIDERS: Radiology Radiation Oncology
DX: Z08 Encounter for follow-up examination after completed treatment for malignant neoplasm (principal); Z85.048 Personal history of other malignant neoplasm of rectum, rectosigmoid junction, and anus

== ENCOUNTER → 2018-09-09 | Outpatient (CLI) | payer OTHER, MEDICARE ==
--- NOTE | ~2018-09-09 | ONC ---
[address] [address] RADIATION ONCOLOGY NOTE Name: MK LU Room: [facility]#: [id number] Admission: 09/09/18 Attend Phys: Jacob Larkin MD Discharge: Date of : 52 Report #: [id number] THIS REPORT FOR: //name// CC: Jose Larkin DATE OF SERVICE: 09/09/2018 RADIATION ONCOLOGY FOLLOWUP NOTE REFERRING PHYSICIANS: Include Kristi Perez MD; Jose Montoya DO; Hernando Kendall MD and Logan Bennett MD. [facility] phone is [phone]. PRIMARY SITE AND HISTOPATHOLOGY: The patient received chemoradiotherapy preoperatively for clinical T3 NX M0 rectal cancer. The patient underwent resection of the rectal cancer on 09/04/2013. The patient's radiation therapy was completed on 06/09/2013 and the patient underwent a low anterior resection on 09/04/2013. 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 So, he ultimately underwent a laparoscopic loop ileostomy and has a colostomy bag and that was performed on 07/20/2018. Again, interval note, the patient now feels like he is eating well. His distended abdomen now has resolved. He has more energy. He feels better and he says he is seeing his colorectal surgeon on 10/04/2018. MEDICATIONS: Levothyroxine, rosuvastatin, and omeprazole. SOCIAL HISTORY: The patient smokes cigarettes. He smoked about 1 pack per day since about 1959. REVIEW OF SYSTEMS: GASTROINTESTINAL: He now has a colostomy bag, which he changes about 2-3 times a week. RESPIRATORY: The patient was not short of breath. PHYSICAL EXAMINATION: VITAL SIGNS: The patient weighed 168.8 pounds on 09/09/2018. He was 177 pounds on 06/03/2018 and on 09/09/2018, blood pressure is 138/72, pulse 56, respirations 18, oxygen saturation 98%. LYMPH NODES: The patient has no palpable cervical or supraclavicular or inguinal lymphadenopathy. HEART: Had a regular rate and rhythm without murmur. LUNGS: Clear to auscultation. ABDOMEN: Soft, it was nontender. He had positive bowel sounds[place] [address] RADIATION ONCOLOGY NOTE Name: MK LU Room: [facility]#: [id number] Admission: 09/09/18 Attend Phys: Jacob Larkin MD Discharge: Date of : 52 Report #: [id number] was intact on the right side of the abdomen. LABORATORY DATA: From 09/07/2018, sodium 140, potassium 4.5, BUN 16, creatinine 0.9, AST 13, ALT 24. CEA level was 3.3. White blood cell count was 6.2, hemoglobin 13.5, platelets 253,000. ASSESSMENT AND PLAN: 1. History of rectal cancer. There is no clear evidence of rectal cancer at this time. The patient said he is scheduled to see his colorectal surgeon, Dr. Perez on 10/04/2018. Lab work will be ordered around 03/2019 or 04/2019 and a chest, abdomen and pelvic CT will be ordered around 04/2019. The patient will be asked to follow up with me afterwards. 2. Hypothyroidism. The patient takes levothyroxine that is managed by his referring physicians. 3. Hyperlipidemia. The patient takes rosuvastatin that is managed by his referring physicians. 4. Cigarette smoking. The patient was encouraged to quit smoking. Thank you for allowing me to participate in the care of this patient. By: [id number] Larkin MD /huyen
== END ==
LOC: M.RTH 04:48
DX: Z08 Encounter for follow-up examination after completed treatment for malignant neoplasm (principal); E03.9 Hypothyroidism, unspecified; E78.5 Hyperlipidemia, unspecified; F17.210 Nicotine dependence, cigarettes, uncomplicated; Z85.048 Personal history of other malignant neoplasm of rectum, rectosigmoid junction, and anus

== ENCOUNTER → 2018-10-13 | Outpatient (CLI) | payer OTHER, MEDICARE | LOC: M.CT 10:35 | DX: R14.0 Abdominal distension (gaseous) (principal); Z85.048 Personal history of other malignant neoplasm of rectum, rectosigmoid junction, and anus ==

== ENCOUNTER → 2019-01-03 | Outpatient (CLI) | payer OTHER, MEDICARE ==
[2019-01-03 10:39] LABS: ABSOLUTE BASOPHILS 0.1 thou/uL (0.0-0.2); ABSOLUTE EOSINOPHILS 0.2 thou/uL (0.0-0.7); ABSOLUTE LYMPHOCYTES 0.9 thou/uL (0.8-5.3); ABSOLUTE MONOCYTES 0.5 thou/uL (0.0-1.2); ABSOLUTE NEUTROPHILS 5.4 thou/uL (1.6-8.1); BASOPHILS 0.7 %; HEMATOCRIT 41.7 % (42.0-52.0); HEMOGLOBIN 13.9 gm/dL (14.0-18.0); LYMPHOCYTES 12.9 %; MCH 26.5 pg (26.0-34.0); MCHC 33.3 g/dL (28.0-37.0); MCV 79.6 fL (80.0-100.0); MONOCYTES 7.3 %; MPV 7.1 fl. (7.2-11.1); NUCLEATED RBCS 0 /100WBC; PLATELET COUNT* 212 thou/uL (150-400); POLYS 76.1 %; RBC 5.24 mil/uL (4.50-6.00); RDW-CV 16.4 % (10.5-14.5); WBC 7.1 thou/uL (4.0-11.0)
[2019-01-03 10:55] LABS: CREATININE 1.2 mg/dL (0.6-1.3); POTASSIUM 4.5 mmol/L (3.5-5.1)
== END ==
LOC: M.LAB 10:18
PROVIDERS: Colon & Rectal Surgery
DX: E86.0 Dehydration (principal)

== ENCOUNTER → 2019-06-26 | Outpatient (CLI) | payer OTHER, MEDICARE ==
[2019-06-26 13:27] LABS: ABSOLUTE BASOPHILS 0.1 thou/uL (0.0-0.2); ABSOLUTE EOSINOPHILS 0.1 thou/uL (0.0-0.7); ABSOLUTE LYMPHOCYTES 1.2 thou/uL (0.8-5.3); ABSOLUTE MONOCYTES 0.5 thou/uL (0.0-1.2); ABSOLUTE NEUTROPHILS 6.4 thou/uL (1.6-8.1); BASOPHILS 0.9 %; EOSINOPHILS 1.5 %; HEMATOCRIT 43.7 % (42.0-52.0); HEMOGLOBIN 14.7 gm/dL (14.0-18.0); LYMPHOCYTES 14.6 %; MCH 26.8 pg (26.0-34.0); MCHC 33.6 g/dL (28.0-37.0); MCV 79.8 fL (80.0-100.0); MONOCYTES 5.8 %; MPV 8.3 fl. (7.2-11.1); NUCLEATED RBCS 0 /100WBC; PLATELET COUNT* 185 thou/uL (150-400); POLYS 77.2 %; RBC 5.47 mil/uL (4.50-6.00); WBC 8.3 thou/uL (4.0-11.0)
[2019-06-26 13:50] LABS: ALBUMIN 3.6 g/dL (3.4-5.0); CALCIUM 8.5 mg/dL (8.5-10.1); CREATININE 1.2 mg/dL (0.6-1.3); POTASSIUM 4.5 mmol/L (3.5-5.1); TOTAL BILIRUBIN 0.6 mg/dL (<0.1-1.0); TOTAL PROTEIN 6.9 g/dL (6.4-8.2)
== END ==
LOC: M.LAB 12:52
PROVIDERS: Radiology Radiation Oncology
DX: J98.4 Other disorders of lung (principal); J43.9 Emphysema, unspecified; M47.815 Spondylosis without myelopathy or radiculopathy, thoracolumbar region; M41.85 Other forms of scoliosis, thoracolumbar region; N28.1 Cyst of kidney, acquired; N40.0 Benign prostatic hyperplasia without lower urinary tract symptoms; K76.89 Other specified diseases of liver

== ENCOUNTER → 2019-07-07 | Outpatient (CLI) | payer OTHER ==
--- NOTE | 2019-07-08 21:42 | ONC ---
[address] [address] RADIATION ONCOLOGY NOTE Name: MK LU Devan Room: [facility]#: [id number] Admission: 07/07/19 Attend Phys: Jacob Larkin MD Discharge: Date of : 52 Report #: [id number] THIS REPORT FOR: //name// CC: Dr. Jose Bennett MD DATE OF SERVICE: 07/07/2019 REFERRING PHYSICIANS: Include Dr. Jose Montoya, Dr. Kristi Perez, Dr. Hernando Kendall and Loagn Bennett MD. [facility] phone is [phone]. PRIMARY SITE AND HISTOPATHOLOGY: The patient received chemoradiotherapy preoperatively for a clinical T3 NX M0 rectal cancer. The patient underwent resection of the rectal cancer on 09/04/2013. The patient's radiation therapy was completed on 06/09/2013. The patient underwent a low anterior resection on 09/04/2013. 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 He ultimately underwent a laparoscopic loop ileostomy on and now he has a colostomy bag. INTERVAL NOTE: The patient felt like he was eating reasonably well. He has a good energy level. He feels good. He is seeing his colorectal surgeon, Dr. Perez on 07/19/2019. MEDICATIONS: He says he takes a potassium supplement and levothyroxine and he had taken rosuvastatin and omeprazole in the past. SOCIAL HISTORY: The patient continues to smoke cigarettes. He smoked about 1 pack per day since about 1959. REVIEW OF SYSTEMS: GASTROINTESTINAL: He has a colostomy bag and he changes that about 2-3 times a week. RESPIRATORY: The patient was not short of breath. PHYSICAL EXAMINATION: VITAL SIGNS: The patient weighed 199 pounds on 07/07/2019, and he was 168.8 pounds on 09/09/2018. On 07/07/2019, blood pressure was 137/74, temperature 97.2 degrees Fahrenheit, pulse 60, respirations 18, oxygen saturation was 97% on room air. LYMPH NODES: The patient had no palpable cervical [place] [address] RADIATION ONCOLOGY NOTE Name: MK LU Room: [facility]#: [id number] Admission: 07/07/19 Attend Phys: Jacob Larkin MD Discharge: Date of : 52 Report #: [id number] inguinal lymphadenopathy. HEART: Had a regular rate and rhythm without murmur. LUNGS: were clear to auscultation. ABDOMEN: Soft and not tender. He had positive bowel sounds. Colostomy bag was intact. LABORATORY DATA: From 06/26/2019, white blood cell count was 8.3, hemoglobin was 14.7, platelets were 185,000. Sodium was 140, potassium was 4.5, BUN 10, creatinine 1.2. RADIOLOGIC DATA: Abdominal, pelvic and chest CT from 06/26/2019 revealed a soft tissue density in the perirectal region, which was similar to how it looked in 10/2018, which was thought to be post-treatment changes and continued followup was recommended. The Chest CT revealed no evidence of soft tissue pulmonary metastatic disease or hilar or axillary lymphadenopathy. ASSESSMENT AND PLAN: 1. History of rectal cancer- There is no clear evidence of rectal cancer at this time. The patient is seeing his colorectal surgeon on 07/19/2019 and lab work and a chest, abdomen and pelvic CT were ordered in about 1 year and the patient was asked to schedule a followup appointment to see me afterwards. 2. Hypothyroidism- The patient takes levothyroxine and that is managed by his referring physicians. 3. Hyperlipidemia- The patient takes rosuvastatin and that is managed by his referring physicians. 4. Cigarette smoking- The patient was encouraged to quit smoking. Thank you for allowing me to participate in the care of this patient. <ELECTRONICALLY SIGNED> By: Jacob Larkin MD 07/08/19 2142 [id number] Larkin MD /nt
== END ==
LOC: M.RTH 01:16
DX: Z51.11 Encounter for antineoplastic chemotherapy (principal); C20 Malignant neoplasm of rectum; Z79.899 Other long term (current) drug therapy

== ENCOUNTER → 2020-02-23 | Outpatient (CLI) | payer OTHER ==
[2020-02-23 12:02] LABS: ABSOLUTE EOSINOPHILS 0.2 thou/uL (0.0-0.7); ABSOLUTE MONOCYTES 0.6 thou/uL (0.0-1.2); ABSOLUTE NEUTROPHILS 6.4 thou/uL (1.6-8.1); BASOPHILS 0.6 %; EOSINOPHILS 2.2 %; LYMPHOCYTES 12.5 %; MCH 28.1 pg (26.0-34.0); MCHC 33.4 g/dL (28.0-37.0); MCV 84.1 fL (80.0-100.0); MONOCYTES 6.9 %; MPV 7.6 fl. (7.2-11.1); NUCLEATED RBCS 0 /100WBC; PLATELET COUNT* 205 thou/uL (150-400); POLYS 77.8 %; RBC 5.36 mil/uL (4.50-6.00); RDW-CV 15.7 % (10.5-14.5); WBC 8.3 thou/uL (4.0-11.0)
[2020-02-23 12:37] LABS: ALBUMIN 3.3 g/dL (3.4-5.0); CALCIUM 8.4 mg/dL (8.5-10.1); CREATININE 1.4 mg/dL (0.6-1.3); POTASSIUM 4.3 mmol/L (3.5-5.1); TOTAL BILIRUBIN 0.3 mg/dL (<0.1-1.0); TOTAL PROTEIN 6.9 g/dL (6.4-8.2)
== END ==
LOC: M.LAB 11:42
PROVIDERS: ATTEND Colon & Rectal Surgery
DX: Z85.048 Personal history of other malignant neoplasm of rectum, rectosigmoid junction, and anus (principal)

== ENCOUNTER → 2020-07-03 | Outpatient (CLI) | payer OTHER, MEDICARE ==
[2020-07-03 09:59] LABS: ABSOLUTE BASOPHILS 0.1 thou/uL (0.0-0.2); ABSOLUTE EOSINOPHILS 0.2 thou/uL (0.0-0.7); ABSOLUTE LYMPHOCYTES 1.2 thou/uL (0.8-5.3); ABSOLUTE MONOCYTES 0.8 thou/uL (0.0-1.2); ABSOLUTE NEUTROPHILS 8.6 thou/uL (1.6-8.1); BASOPHILS 0.5 %; EOSINOPHILS 1.7 %; HEMATOCRIT 45.4 % (42.0-52.0); HEMOGLOBIN 15.3 gm/dL (14.0-18.0); LYMPHOCYTES 11.5 %; MCH 28.3 pg (26.0-34.0); MCHC 33.7 g/dL (28.0-37.0); MCV 83.9 fL (80.0-100.0); MONOCYTES 7.2 %; NUCLEATED RBCS 0 /100WBC; PLATELET COUNT* 189 thou/uL (150-400); POLYS 79.1 %; RBC 5.41 mil/uL (4.50-6.00); RDW-CV 14.2 % (10.5-14.5); WBC 10.8 thou/uL (4.0-11.0)
[2020-07-03 11:19] LABS: ALBUMIN 3.5 g/dL (3.4-5.0); CALCIUM 8.9 mg/dL (8.5-10.1); CREATININE 1.3 mg/dL (0.6-1.3); POTASSIUM 4.2 mmol/L (3.5-5.1); TOTAL BILIRUBIN 0.7 mg/dL (<0.1-1.0); TOTAL PROTEIN 7.5 g/dL (6.4-8.2)
== END ==
LOC: M.LAB 09:36 → M.CT 11:00
PROVIDERS: ATTEND Radiology Radiation Oncology
DX: C20 Malignant neoplasm of rectum (principal); N28.1 Cyst of kidney, acquired; J43.9 Emphysema, unspecified; N40.0 Benign prostatic hyperplasia without lower urinary tract symptoms; K76.89 Other specified diseases of liver

== ENCOUNTER → 2020-07-05 | Outpatient (CLI) | payer OTHER, MEDICARE ==
--- NOTE | 2020-07-07 22:46 | ONC ---
[address] [address] RADIATION ONCOLOGY NOTE Name: MK LU Room: [facility]#: [id number] Admission: 07/05/20 Attend Phys: Jacob Larkin MD Discharge: Date of : 52 Report #: [id number] THIS REPORT FOR: cc: FAM - No family physician/PCP FAM - No family physician/PCP Jacob Larkin MD ~ DATE OF SERVICE: 07/05/2020 CC:Dr. Jose Bennett MD RADIATION ONCOLOGY FOLLOWUP NOTE REFERRING PHYSICIANS: Jose Montoya DO; Krsiti Perez MD; Hernando Kendall MD; Logan Bennett MD [facility] phone is [phone]. PRIMARY SITE AND HISTOPATHOLOGY: The patient received chemotherapy/radiation therapy preoperatively for a clinical T3 NX M0 rectal cancer. The patient underwent resection of the rectal cancer on 09/04/2013. The patient's radiation therapy was completed on 06/09/2013. The patient underwent a low anterior resection on 09/04/2013. 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 He ultimately underwent a laparoscopic loop ileostomy on 07/20/2018, and now he has an ileostomy bag and the megacolon resolved. INTERVAL NOTE: The patient felt he was eating well. He has a good energy level. MEDICATIONS: He takes levothyroxine and rosuvastatin and omeprazole. SOCIAL HISTORY: The patient continues to smoke cigarettes. He smoked about 1 pack per day since about 1959. REVIEW OF SYSTEMS: GASTROINTESTINAL: He has an ileostomy bag and he changes that about 2-3 times a week. RESPIRATORY: He was not short of breath. PHYSICAL EXAMINATION: VITAL SIGNS: The patient weighed 196.4 pounds on 07/05/2020, 199 [place] [address] RADIATION ONCOLOGY NOTE Name: MK LU Room: [facility]#: [id number] Admission: 07/05/20 Attend Phys: Jacob Larkin MD Discharge: Date of : 52 Report #: [id number] 07/07/2019. On 07/05/2020, blood pressure was 138/66, pulse 54, respirations 24, temperature 98.8 degrees Fahrenheit, oxygen saturation 97% on room air. LYMPH NODES: The patient had no palpable cervical or supraclavicular or inguinal lymphadenopathy. HEART: Had a regular rate and rhythm without murmur. LUNGS: were clear to auscultation. ABDOMEN: Soft, not tender. Positive bowel sounds. Ileostomy bag was intact. LABORATORY DATA: From 07/03/2020, white blood cell count was 10.8, hemoglobin was 15.3, platelets were 189,000. Sodium was 140, potassium was 4.2, BUN was 18, creatinine was 1.3. CEA level was 3.4, which was within normal limits 0-4.7 that was all done on 07/03/2020 at [facility]. RADIATION ONCOLOGY: He also had CT scans done on the same day, a chest, abdomen and pelvic CT. The CT of the chest showed no evidence for metastatic disease in the chest. He has findings consistent with emphysema. He had a stable appearing rectal wall thickening, left pelvic sidewall fullness. There was no bowel obstruction, ascites or free air. He had a stable 1-cm cyst involving the central liver as well as a stable renal cyst and some prostatic enlargement. ASSESSMENT AND PLAN: 1. History of rectal cancer- There is no evidence of rectal cancer at this time. Lab work including a CEA will be ordered in about 1 year as well as an abdominal and pelvic CT and the patient was asked to follow up with me afterwards. 2. Cigarette smoking- The patient was encouraged to quit smoking and lab work and a chest CT were ordered in about 1 year and the patient was asked to follow up with me afterwards. 3. Hypothyroidism- The patient takes levothyroxine that is managed by his referring physicians. 4. Hyperlipidemia- The patient takes rosuvastatin and that is managed by his referring physicians. Total time spent on this appointment was approximately 31 minutes. Thank you for allowing me to participate in the care of this patient. <ELECTRONICALLY SIGNED> By: Jacob Larkin MD 07/07/20 2246 [id number] Larkin MD /nt
== END ==
LOC: M.RTH 09:45
PROVIDERS: ATTEND Radiology Radiation Oncology
DX: Z85.048 Personal history of other malignant neoplasm of rectum, rectosigmoid junction, and anus (principal); Z92.21 Personal history of antineoplastic chemotherapy; Z92.3 Personal history of irradiation